=== PATIENT | male | born 1980 | race Caucasian/White ===

== ENCOUNTER → 2019-12-08 | Outpatient (CLI) | payer OTHER ==
[~2019-12-08] MED LIST: CYCL10TA9 PO; DOXY100C2 PO; PRD20T PO; PRED5TAB PO
--- NOTE | 2019-12-08 09:21 | Diagnostic Imaging Report ---
PROCEDURE: US Thyroid. TECHNIQUE: Multiple real-time grayscale images were obtained of the thyroid in various projections. INDICATION: Thyroid nodules. COMPARISON: 10/23/2012 FINDINGS: The right lobe of thyroid gland measures 5.7 x 2.3 x 2.0 cm. A couple of 0.3 cm avascular cystic nodules are noted within the right thyroid lobe, not significantly changed from the prior exam. The left lobe of thyroid gland measures 5.4 x 1.9 x 2.4 cm. A 0.5 cm hypoechoic nodule is identified within the mid left thyroid lobe, stable from the prior examination. Additional sub-zero 0.3 cm avascular cystic nodules also present. Isthmus is unremarkable. IMPRESSION: Benign subcentimeter bilateral thyroid nodules as described above. Dictated by: Dictated on workstation # [id number]
== END ==
LOC: RAD 06:48
PROVIDERS: ATTEND Nurse Practitioner Family
DX: E04.2 Nontoxic multinodular goiter (principal)
CPT/HCPCS: 76536

== ENCOUNTER → 2020-08-29 | Outpatient (CLI) | payer OTHER ==
--- NOTE | 2020-08-29 14:57 | Diagnostic Imaging Report ---
EXAM: LUMBAR SPINE - 2-3 VIEWS INDICATION: Low back pain. No known injury. COMPARISON: None. FINDINGS: There are 5 lumbar-type vertebral bodies. Normal alignment. Vertebral body heights preserved. Mild degenerative endplate changes at T11-T12. No fractures identified. The visualized pelvis is intact. IMPRESSION: 1. No acute radiographic findings in the lumbar spine. 2. Mild spondylotic changes at T11-T12. Dictated by: Dictated on workstation # [id number]
== END ==
LOC: RAD 13:18
PROVIDERS: ATTEND Nurse Practitioner Family
DX: M47.814 Spondylosis without myelopathy or radiculopathy, thoracic region (principal)
CPT/HCPCS: 72100

== ENCOUNTER 2020-09-09 15:15 | Outpatient (CLI) | payer OTHER ==
--- NOTE | 2020-09-09 16:14 | Diagnostic Imaging Report ---
EXAM: MR thoracic spine without contrast. DATE: September 09, 2020. INDICATION: 39-year-old male, mid back pain extending into the left leg. COMPARISON: None. TECHNIQUE: Multiple noncontrast MRI sequences of the thoracic spine were obtained. FINDINGS: The alignment of the thoracic spine is unremarkable. There is no evidence of a diffuse marrow infiltrating or replacing process. There is no focal concerning bone lesion. There is no identified compression deformity. There is no identified abnormal signal in the thoracic spinal cord. At T6-T7, there is a right paracentral disc protrusion which does distort the anterior and lateral aspect of the spinal cord. There is no high-grade spinal stenosis at this level. At T8-T9, there is a left paracentral disc protrusion without narrowing of the lateral recesses or spinal canal. There are mild Modic endplate degenerative changes at T11-T12. IMPRESSION: 1. Right paracentral disc protrusion at T6-T7 which does distort the anterior and lateral aspect of the spinal cord at this level without high-grade spinal stenosis or abnormal cord signal. 2. Left paracentral disc protrusion at T8-T9 without narrowing of the lateral recesses or spinal canal. 3. No abnormal cord signal. Dictated by: Dictated on workstation # [id number]
--- NOTE | 2020-09-09 16:31 | Diagnostic Imaging Report ---
PROCEDURE: MRI lumbar spine. TECHNIQUE: Multiplanar, multisequence MRI of the lumbar spine was performed without contrast. INDICATION: Low back pain radiating to left leg. COMPARISON: Lumbar spine radiographs 08/29/2020. FINDINGS: Normal alignment. Vertebral body heights are preserved. Normal bone marrow signal in the lumbar spine. There are Modic type I degenerative endplate changes at T11-T12. No abnormal signal in the conus which terminates at L1. Normal morphology of the cauda equina. The visualized pelvis and paravertebral soft tissues are unremarkable. At L5-S1, there is a left subarticular disc extrusion which compresses the traversing left S1 nerve root. No spinal canal narrowing. There is mild left neural foraminal narrowing. Intervertebral discs are otherwise well-preserved. No other spondylotic change. No other neural impingement. IMPRESSION: Left subarticular disc extrusion at L5-S1 compresses the traversing left S1 nerve root. Dictated by: Dictated on workstation # [id number]
== END 2020-09-09 23:59 | disposition home or self-care (01) ==
LOC: RAD 15:15
PROVIDERS: ATTEND Nurse Practitioner Family
DX: M51.27 Other intervertebral disc displacement, lumbosacral region (principal); M51.25 Other intervertebral disc displacement, thoracolumbar region; M47.814 Spondylosis without myelopathy or radiculopathy, thoracic region
CPT/HCPCS: 72146; 72148

== ENCOUNTER 2020-12-08 16:13 | Outpatient (RCR) | payer OTHER | END 2020-12-27 | disposition home or self-care (01) | PROVIDERS: ATTEND Physician Assistant | DX: M51.17 Intervertebral disc disorders with radiculopathy, lumbosacral region (principal) ==

== ENCOUNTER 2021-04-20 10:56 | Emergency (ER) | payer OTHER ==
[~2021-04-20] VITALS: Ht 177 cm; Wt 95.2 kg
--- NOTE | 2021-04-20 11:15 | ED Upper Extremity ---
General Chief Complaint: Laceration Stated Complaint: L HAND LAC Source: patient Exam Limitations: no limitations History of Present Illness Date Seen by Provider: Apr 20, 2021 Time Seen by Provider: 11:13 Initial Comments Patient is a 40-year-old male who presents ED with left hand pain. Patient states 1 hour ago he was cutting a zip ties at work when the pocket knife slipped resulting in a puncture wound to the left hand. The knife was not stuck in the hand. Report immediate swelling. Bleeding controlled direct pressure. He states he is up-to-date on his tetanus within the past 6 months. Normal active range of motion of the digits but have some pain and difficulty with some movement of his left thumb. Denies of any distal numbness and tingling, fever, chills, wrist pain. Patient works at [employer]. Allergies and Home Medications Allergies Coded Allergies: No Known Drug Allergies (Unverified , 01/18/14) Patient Home Medication List Home Medication List Reviewed: Yes Cephalexin (Cephalexin) 500 Mg Tablet, 500 MG PO QID Prescribed by: JEFF BARTLETT on 04/20/21 1211 Cyclobenzaprine Hcl (Cyclobenzaprine Hcl) 10 Mg Tablet, 1 EACH PO TID PRN for PAIN Prescribed by: MARK ASHBY on 01/18/14 1434 Doxycycline Hyclate (Doxycycline Hyclate) 100 Mg Capsule, 1 EACH PO BID Prescribed by: MARK ASHBY on 01/18/14 1452 Prednisone (Prednisone) 20 Mg Tab, 40 MG PO DAILY Prescribed by: MARK ASHBY on 01/18/14 1452 Review of Systems Constitutional: No dizziness, No malaise EENTM: No ear discharge, No hearing loss, No eye pain, No tearing Respiratory: No cough Gastrointestinal: No abdominal pain, No constipation, No diarrhea Genitourinary: No dysuria, No frequency Musculoskeletal: joint swelling, muscle pain Skin: other (Puncture wound) Psychiatric/Neurological: Denies Anxiety, Denies Depressed All Other Systems Reviewed Negative Unless Noted: Yes Past Fseidnn-Ruthaf-Aibask Hx Patient Social History Tobacco Use?: No Substance use?: No Alcohol Use?: Yes Alcohol Frequency: Once in a while Past Medical History Surgery/Hospitalization HX: PMH: HERNIATED DISK Physical Exam Vital Signs Vital Signs - First Documented 04/20/21 11:08 Temp 36.4 Pulse 67 Resp 18 B/P (MAP) 161/105 (123) Pulse Ox 99 Capillary Refill : Height, Weight, BMI Height: 5'10" Weight: 195lbs. oz. [id number]; BMI Method:Stated General Appearance: WD/WN, no apparent distress HEENT: PERRL/EOMI, normal ENT inspection, TMs normal, pharynx normal Neck: non-tender, full range of motion, supple Cardiovascular: regular rate, rhythm, no edema, no gallop, no JVD Respiratory: chest non-tender, lungs clear, normal breath sounds, no respiratory distress, no accessory muscle use Gastrointestinal: normal bowel sounds, non tender, soft, no organomegaly Back: normal inspection, no CVA tenderness, no vertebral tenderness Hand: normal ROM, Left, laceration, swelling Neurologic/Tendon: normal sensation, normal motor functions, normal tendon functions Skin: other (Small less than 1 cm puncture wound to left dorsum hand. Surrounding swelling. Localized tenderness.) Progress/Results/Core Measures Results/Orders My Orders Orders - CASI ARSHAD Hand, Left, 3 Views (04/20/21 11:15) Vital Signs/I&O 04/20/21 04/20/21 11:08 12:18 Temp 36.4 36.4 Pulse 67 65 Resp 18 18 B/P (MAP) 161/105 (123) 144/94 Pulse Ox 99 99 Departure Communication (Admissions) X-ray negative for fracture. Does have a small less than 1 cm puncture wound. Mild swelling noted. Possible underlying hematoma. No active bleeding. Patient is up-to-date on his tetanus within the past 6 months. Normal active range of motion of the digits. Not concern for tendon injury. Will discharge with Keflex prophylactically. Discussed wound care. 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 Discussed wound care. If any worsening redness, swelling to return back to ED. Ice was applied here. Continue ice for the next 2 to 3 days as this area may swell secondary to the trauma. Return precautions were discussed Impression Primary Impression: Puncture wound Disposition: 01 HOME, SELF-CARE Condition: Improved Departure-Patient Inst. Decision time for Depature: 11:53 Referrals: JUSTIN NUGENT MD (PCP/Family) Primary Care Physician Patient Instructions: Wound Care ED Scripts Cephalexin (Cephalexin) 500 Mg Tablet 500 MG PO QID for 7 Days, #28 TAB Prov: CASI ARSHAD 04/20/21 CASI ARSHAD Apr 20, 2021 11:15
[2021-04-20] MEDS ORDERED: CEPH500T PO ×2 (11:54→12:11)
[2021-04-20 12:18] VITALS: BP 144/94
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
== END 2021-04-20 12:19 | disposition home or self-care (01) ==
LOC: EDUNIT# 10:56 → ER 10:58
DX: S61.432A Puncture wound without foreign body of left hand, initial encounter (principal); W26.0XXA Contact with knife, initial encounter
CPT/HCPCS: 73130